=== PATIENT | male | born 1965 | race Caucasian/White ===

== ENCOUNTER 2018-04-29 17:45 | Inpatient (IN) | payer BC, OTHER ==
[~2018-04-29] VITALS: Ht 188 cm; Wt 103.5 kg
[2018-04-29 18:24] VITALS: BP 127/72; PULSE 78; TEMP 98.1
[2018-04-29 22:45] LABS: MUCOUS Present /lpf; PH 5 (5-8); SQUAMOUS EPITHELIAL None Seen /hpf; URINE APPEARANCE Clear; URINE BACTERIA Rare /hpf; URINE BILIRUBIN Negative (NEGATIVE); URINE BLOOD Negative (NEGATIVE); URINE COLOR Yellow; URINE GLUCOSE 2+ (NEGATIVE); URINE KETONE Negative (NEGATIVE); URINE LEUKOCYTE ESTERASE Negative (NEGATIVE); URINE NITRATE Negative (NEGATIVE); URINE PROTEIN(semi-quant) Negative (NEGATIVE); URINE RBC 0-2 /hpf; URINE UROBILINOGEN Negative (NEGATIVE)
[2018-04-29 22:55] LABS: COLLECTION METHOD CLEAN CATCH
[2018-04-29 23:55] VITALS: BP 130/77; PULSE 59; TEMP 97.5
[2018-04-30 03:39] VITALS: BP 122/72; PULSE 62; TEMP 98.1
[2018-04-30] MEDS ORDERED: GLUCOPHAGE1000 MG PO (07:12)
[2018-04-30 07:32] LABS: BASO % 0.3 % (0.0-2.0); EOS # 0.2 (0.0-0.7); EOS % 1.8 % (0-4.0); GRAN # 6.7 (1.4-6.5); GRAN % 73.4 % (42.2-75.2); HEMOGLOBIN 11.3 g/dl (13.5-18.0); LYMPH # 1.5 (1.2-3.4); LYMPH % 16.9 % (20.0-51.0); MEAN CELL VOLUME 91 fl (80.0-100.0); MEAN CORPUSCULAR HEMOGLOBIN 30 pg (27.0-31.0); MEAN CORPUSCULAR HGB CONC 33 g/dl (33.0-37.0); MEAN PLATELET VOLUME 9.2 fl (7.4-10.4); MONO # 0.6 (0.1-0.6); MONO % 6.6 % (1.7-9.3); PLATELET COUNT 316 K/mm3 (130-400); RED BLOOD COUNT 3.83 M/mm3 (4.20-5.60); REDCELL DISTRIBUTION WIDTH-CV 12.6 % (11.5-14.5)
[2018-04-30 07:34] LABS: CALCIUM 8.5 mg/dL (8.4-10.2); CREATININE, serum 0.89 mg/dL (0.66-1.25)
[2018-04-30 07:36] LABS: HEMATOCRIT 34.8 % (42.0-52.0)
[2018-04-30 07:50] VITALS: BP 117/78; PULSE 65; TEMP 97.8
[2018-04-30 12:27] VITALS: BP 116/69; PULSE 72; TEMP 98
[2018-04-30 15:01] VITALS: BP 116/69; PULSE 73; TEMP 98.2
[2018-04-30 19:01] VITALS: BP 121/64; PULSE 77; TEMP 98.8
[2018-04-30 23:56] VITALS: BP 117/71; BP 150/116; PULSE 95; TEMP 99.3
[2018-05-01 03:49] VITALS: BP 103/58; PULSE 73; TEMP 99
[2018-05-01 06:45] LABS: BASO % 0.5 % (0.0-2.0); EOS # 0.2 (0.0-0.7); EOS % 1.8 % (0-4.0); GRAN # 6.1 (1.4-6.5); GRAN % 72.9 % (42.2-75.2); HEMOGLOBIN 11.3 g/dl (13.5-18.0); LYMPH # 1.4 (1.2-3.4); LYMPH % 17.1 % (20.0-51.0); MEAN CELL VOLUME 91 fl (80.0-100.0); MEAN CORPUSCULAR HEMOGLOBIN 30 pg (27.0-31.0); MEAN CORPUSCULAR HGB CONC 33 g/dl (33.0-37.0); MEAN PLATELET VOLUME 9.2 fl (7.4-10.4); MONO # 0.6 (0.1-0.6); MONO % 7.1 % (1.7-9.3); PLATELET COUNT 288 K/mm3 (130-400); REDCELL DISTRIBUTION WIDTH-CV 12.7 % (11.5-14.5)
[2018-05-01 06:47] LABS: HEMATOCRIT 34.5 % (42.0-52.0)
[2018-05-01 07:00] VITALS: BP 115/63; BP 15/63; PULSE 70; TEMP 98.8
[2018-05-01 07:08] LABS: C-REACTIVE PROTEIN 3.4 mg/dL (0.0-0.9); CALCIUM 8.5 mg/dL (8.4-10.2); CREATININE, serum 0.9 mg/dL (0.66-1.25); POTASSIUM 4.3 mmol/L (3.4-5.0)
[2018-05-01 12:24] VITALS: BP 121/72; PULSE 72; TEMP 98.7
[2018-05-01 13:26] LABS: ERYTHROCYTE SEDIMENTATION RATE 42 mm/hr (0-30)
[2018-05-01 16:25] VITALS: BP 118/65; PULSE 69; TEMP 98.4
[2018-05-01 19:35] VITALS: BP 122/68; PULSE 75; TEMP 98.6
[2018-05-02] VITALS (7 sets, daily range): BP systolic 115–142; BP diastolic 55–73; PULSE 7–80; TEMP 98.2–99.1
[2018-05-02 06:39] LABS: BASO % 0.5 % (0.0-2.0); EOS # 0.1 (0.0-0.7); EOS % 1.7 % (0-4.0); GRAN # 5.7 (1.4-6.5); GRAN % 73.5 % (42.2-75.2); HEMOGLOBIN 10.6 g/dl (13.5-18.0); LYMPH # 1.3 (1.2-3.4); LYMPH % 16.7 % (20.0-51.0); MEAN CELL VOLUME 91 fl (80.0-100.0); MEAN CORPUSCULAR HEMOGLOBIN 29 pg (27.0-31.0); MEAN CORPUSCULAR HGB CONC 32 g/dl (33.0-37.0); MEAN PLATELET VOLUME 9.5 fl (7.4-10.4); MONO # 0.5 (0.1-0.6); MONO % 6.7 % (1.7-9.3); PLATELET COUNT 304 K/mm3 (130-400); RED BLOOD COUNT 3.62 M/mm3 (4.20-5.60); REDCELL DISTRIBUTION WIDTH-CV 12.6 % (11.5-14.5)
[2018-05-02 06:40] LABS: HEMATOCRIT 33.1 % (42.0-52.0)
[2018-05-02 06:53] LABS: CALCIUM 8.4 mg/dL (8.4-10.2); CREATININE, serum 0.96 mg/dL (0.66-1.25); POTASSIUM 4.1 mmol/L (3.4-5.0)
[2018-05-03] VITALS (14 sets, daily range): BP systolic 97–146; BP diastolic 61–82; PULSE 70–82; TEMP 98.4–99.1
[2018-05-03 07:04] LABS: BASO # 0.1 (0.0-0.2); BASO % 0.6 % (0.0-2.0); EOS # 0.2 (0.0-0.7); EOS % 1.7 % (0-4.0); GRAN # 6.8 (1.4-6.5); GRAN % 76.6 % (42.2-75.2); HEMOGLOBIN 10.9 g/dl (13.5-18.0); LYMPH # 1.2 (1.2-3.4); LYMPH % 13.4 % (20.0-51.0); MEAN CELL VOLUME 91 fl (80.0-100.0); MEAN CORPUSCULAR HEMOGLOBIN 30 pg (27.0-31.0); MEAN CORPUSCULAR HGB CONC 32 g/dl (33.0-37.0); MEAN PLATELET VOLUME 9.3 fl (7.4-10.4); MONO # 0.6 (0.1-0.6); MONO % 6.8 % (1.7-9.3); PLATELET COUNT 324 K/mm3 (130-400); RED BLOOD COUNT 3.68 M/mm3 (4.20-5.60); REDCELL DISTRIBUTION WIDTH-CV 12.6 % (11.5-14.5)
[2018-05-03 07:12] LABS: CALCIUM 8.5 mg/dL (8.4-10.2); CREATININE, serum 0.87 mg/dL (0.66-1.25); POTASSIUM 4.1 mmol/L (3.4-5.0)
[2018-05-03 07:14] LABS: HEMATOCRIT 33.6 % (42.0-52.0)
[2018-05-04 05:09] VITALS: BP 119/63; PULSE 64; TEMP 98.8
[2018-05-04 07:47] LABS: BASO % 0.5 % (0.0-2.0); EOS # 0.2 (0.0-0.7); EOS % 2.9 % (0-4.0); GRAN # 5.4 (1.4-6.5); GRAN % 68.7 % (42.2-75.2); LYMPH # 1.3 (1.2-3.4); LYMPH % 16.9 % (20.0-51.0); MEAN CELL VOLUME 92 fl (80.0-100.0); MEAN CORPUSCULAR HEMOGLOBIN 30 pg (27.0-31.0); MEAN CORPUSCULAR HGB CONC 32 g/dl (33.0-37.0); MONO # 0.8 (0.1-0.6); PLATELET COUNT 344 K/mm3 (130-400); RED BLOOD COUNT 3.71 M/mm3 (4.20-5.60); REDCELL DISTRIBUTION WIDTH-CV 12.9 % (11.5-14.5)
[2018-05-04 07:59] VITALS: BP 110/69; PULSE 74; TEMP 98.1
[2018-05-04 13:03] VITALS: BP 124/60; PULSE 79; TEMP 97.7
[2018-05-04] MEDS ORDERED: CEPHALEXIN500 M1 PO (13:07)
[2018-05-04] MEDS ORDERED: TYLENOL 325MG325 MG PO (13:07)
[2018-05-04] MEDS ORDERED: NORCO 325 MG-51 TAB PO (13:09)
[2018-05-04] MEDS ORDERED: FLEXERIL 1010 MG/TAB PO (13:09)
== END 2018-05-04 14:40 | disposition home or self-care (01) | DRG 857 ==
LOC: MEDICAL 17:45
PROVIDERS: Nurse Practitioner; Orthopaedic Surgery; Physician Assistant
PROC: 0Y6N0Z9 Detachment at Left Foot, Partial 1st Ray, Open Approach (ICD-10-PCS; principal; 2018-05-03 07:00)
DX: T81.4XXA Infection following a procedure, initial encounter (principal); M86.9 Osteomyelitis, unspecified; E11.69 Type 2 diabetes mellitus with other specified complication; E11.621 Type 2 diabetes mellitus with foot ulcer; L97.529 Non-pressure chronic ulcer of other part of left foot with unspecified severity
CPT/HCPCS: 99222-AI; 99231-AI; 99232-AI; 99239; A9585; J0670; J0690; J0692; J0696; J1170; J1650; J1815; J2175; J2250; J2270; J2405; J2704; J3010; J3370; J7030; J7050